=== PATIENT | female | born 2000 | race African-American/Black ===

== ENCOUNTER 2022-08-31 10:51 | Emergency (ER) | payer OTHER ==
[2022-08-31] MEDS ORDERED: Dexamethasone 4 MG TAB ONE (12:18)
== END 2022-08-31 12:42 | disposition home or self-care (01) ==
LOC: ERS 10:51
DX: J45.909 Unspecified asthma, uncomplicated (principal); Z87.891 Personal history of nicotine dependence
CPT/HCPCS: 99284; J8540